=== PATIENT | male | born 1940 | race Caucasian/White ===

== ENCOUNTER 2019-06-16 06:19 | Day surgery (SDC) | payer OTHER ==
[2019-06-11 09:51] VITALS: BP 128/77
[2019-06-11 09:55] LABS: EOSINOPHILS % (AUTO) 4.4 % (0.0-8.0); HEMATOCRIT 42.4 % (42-54); LYMPHOCYTES % (AUTO) 14.5 % (21.0-51.0); MEAN CORPUSCULAR HEMOGLOBIN 32.1 pg (27.0-33.0); MEAN CORPUSCULAR HGB CONC 32.8 g/dL (32.0-36.0); MEAN CORPUSCULAR VOLUME 97.8 fL (79-99); MONOCYTES % (AUTO) 10.7 % (3.0-13.0); NEUTROPHILS % (AUTO) 69.4 % (40.0-77.0); NUCLEATED RED BLOOD CELLS 0.1 % (0.0-0.19); PLATELET COUNT (AUTO) 181 K/uL (130-400); RED BLOOD CELL COUNT(AUTO) 4.34 MIL/uL (4.50-6.20); RED CELL DISTRIBUTION WIDTH 14.6 % (11.0-15.5); WHITE BLOOD COUNT (AUTO) 5.1 K/uL (4.8-10.8)
[2019-06-11 10:02] LABS: CREATININE 1.8 mg/dL (0.5-1.5); POTASSIUM 5.4 mmol/L (3.5-5.1)
[2019-06-11 10:04] LABS: INR 1.01 (0.85-1.15); PARTIAL THROMBOPLASTIN TIME 27.3 SEC (26.3-35.5); PROTHROMBIN TIME 10.6 SEC (9.6-11.6)
[2019-06-11 10:09] LABS: APPEARANCE,URINE Clear (CLEAR); BILIRUBIN,URINE Negative (NEGATIVE); COLOR,URINE Yellow (YELLOW); GLUCOSE, URINE (UA) Negative (NEGATIVE); KETONES,URINE Negative (NEGATIVE); LEUKOCYTE ESTERASE ,URINE Negative (NEGATIVE); NITRATE,URINE Negative (NEGATIVE); OCCULT BLOOD,URINE Negative (NEGATIVE); PH,URINE 7.5 (5.0-8.0); PROTEIN,URINE Negative (NEGATIVE)
--- NOTE | 2019-06-15 12:19 | NUR ---
SPOKE TO SHERI TRUJILLO AND REPORTED POTASSIUM OF 5.4, BUN 30, UNDERBASTER 1.8, NEW ORDER FOR NS 125CC/HR AND REPEAT BMP IN MORNING.
[2019-06-16] VITALS (26 sets, daily range): BP systolic 120–148; BP diastolic 69–89
[~2019-06-16] VITALS: Ht 174 cm; Wt 78.8 kg
[~2019-06-16 06:19] MED LIST: ASPI-555 PO; CALC-190 PO; CITA-107 PO; FERR325T22 PO; FINA5TAB41 PO; LORA10TA7 PO; METO25TA6 PO; MULT-1258 PO; ROPI2TAB2 PO; SODIUM CHLORIDE 0.9% 1000ML 1,000 ML IV SCH; TERA5CAP4 PO; TORS20TA4 PO
[2019-06-16 07:11] LABS: CREATININE 1.8 mg/dL (0.5-1.5); POTASSIUM 4.5 mmol/L (3.5-5.1)
[2019-06-16] MEDS ORDERED: SODIUM BICARB 50MEQ 50ML VIAL ONE (09:28)
[2019-06-16] MEDS ORDERED: HEPARIN SODIUM 1000UNIT/ML 10ML VIAL ONE (09:28)
[2019-06-16] MEDS ORDERED: IOHEXOL-350 50ML VIAL IV ONE (09:29)
[2019-06-16] MEDS ORDERED: LIDOCAINE HCL 2% 20ML ONE (09:29)
[2019-06-16] MEDS ORDERED: NITROGLYCERIN 5 MG/ML 10 ML VIAL IV ONE (09:29)
[2019-06-16] MEDS ORDERED: IOHEXOL 350 MG/ML 100ML INFUS..BTL IV ONE (09:29)
[2019-06-16] MEDS ORDERED: MEPERIDINE-PF 25 MG/ML SYG ONE (09:40)
[2019-06-16] MEDS ORDERED: MIDAZOLAM HCL 1 MG/ML 2ML VIAL ONE ×3 (09:40→12:45)
--- NOTE | 2019-06-16 09:40 | NUR ---
PROCEDURE PT TAKEN TO PEDIATRIC HOSPITALIST VIA BED FOR SCHEDULED PROCEDURE. SPOUSE AT BEDSIDE.
[2019-06-16] MEDS ORDERED: SODIUM CHLORIDE 0.9% 1000ML 1,000 ML IV SCH (10:31)
[2019-06-16] MEDS ORDERED: LIDOCAINE HCL 2% VISCOUS 15 ML UDCUP ONE (12:31)
[2019-06-16] MEDS ORDERED: FENTANYL CITRATE PF 50 MCG/1 ML 2ML VIAL ONE (12:32)
--- NOTE | 2019-06-16 14:15 | NUR ---
SONIA SONIA PERFORMED AT BEDSIDE BY DR. Almas BERGMAN, PT PATITO WELL. 1ST MEDICATION GIVEN AT 1316 VERSED 2MG AND FENTANYL 25MCG IV 2ND MEDICATION GIVEN - VERSED 2MG IV AND FENTANYL 25MCG IV SONIA PROCEDURE STARTED AT 1324, SONIA COMPLETED AT 1344, RECOVERY STARTED AT 1344. DR. Almas BERGMAN OUT OF ROOM AT 1345, DR. Almas BERGMAN SPOKE TO PATIENT SPOUSE ABOUT FINDINGS. PATIENT TOLERATED WELL, NO ADVERSE REACTIONS NOTED.
--- NOTE | 2019-06-16 14:30 | NUR ---
REPORT REPORT GIVEN TO JAYSON URIBE TO RESUME CARE
--- NOTE | 2019-06-16 15:25 | NUR ---
DISCHARGE ORAL AND WRITTEN DISCHARGE INSTRUCTIONS GIVEN TO PT AND PTS . SITE TO RIGHT GROIN SOFT TO TOUCH. NO BLEEDING, OOZING NOTED. PRESCRIPTION GIVEN TO . NO OTHER QUESTIONS AT THIS TIME.
== END 2019-06-16 15:45 | disposition home or self-care (01) ==
LOC: DAH 06:19
PROVIDERS: ATTEND Internal Medicine Cardiovascular Disease
DX: I25.10 Atherosclerotic heart disease of native coronary artery without angina pectoris (principal); I08.0 Rheumatic disorders of both mitral and aortic valves; I12.9 Hypertensive chronic kidney disease with stage 1 through stage 4 chronic kidney disease, or unspecified chronic kidney disease; N18.9 Chronic kidney disease, unspecified; J43.9 Emphysema, unspecified; N40.0 Benign prostatic hyperplasia without lower urinary tract symptoms
CPT/HCPCS: 36415 ×2; 71045; 80048 ×2; 81003; 85025; 85610; 85730; 93005; 93312; 93458; A4215; A4216; A4221; A4222; A4223 ×3; C1760; C1894; J1644; J2250 ×2; J3010; J3490 ×3; J7030; Q9965; Q9967 ×2; 93313; 99152; 99153; J2175

== ENCOUNTER → 2019-06-22 | Outpatient (CLI) | payer OTHER ==
[~2019-06-22] MED LIST changes: -SODIUM CHLORIDE 0.9% 1000ML 1,000 ML IV SCH
== END | disposition home or self-care (01) ==
LOC: RAH 11:15
PROVIDERS: ATTEND Internal Medicine Cardiovascular Disease
DX: J84.10 Pulmonary fibrosis, unspecified (principal); M47.815 Spondylosis without myelopathy or radiculopathy, thoracolumbar region; L90.5 Scar conditions and fibrosis of skin; K57.90 Diverticulosis of intestine, part unspecified, without perforation or abscess without bleeding; K44.9 Diaphragmatic hernia without obstruction or gangrene; I51.7 Cardiomegaly; M41.84 Other forms of scoliosis, thoracic region; I70.0 Atherosclerosis of aorta
CPT/HCPCS: 71250

== ENCOUNTER → 2019-07-08 | Outpatient (CLI) | payer OTHER ==
[~2019-07-08] MED LIST changes: +ALBUTEROL SULFATE 0.083% 2.5 MG/3 ML INH IH ONE
== END | disposition home or self-care (01) ==
LOC: RESP 08:40
PROVIDERS: ATTEND Neurological Surgery
DX: R06.00 Dyspnea, unspecified (principal)
CPT/HCPCS: 94060; 94727; 94729